=== PATIENT | male | born 1975 ===

== ENCOUNTER → 2021-02-24 15:38 | Outpatient (CLI) | payer BC, SELFPAY ==
--- NOTE | ~2021-02-24 | MR_ITS ---
EXAMINATION: MR knee LT wo con DATE: 02/24/2021 16:26 INDICATION: Internal derangement of the left knee presenting with 5-6 months of left knee pain TECHNIQUE: Magnetic resonance imaging (MRI) of the left knee was performed without intravenous contra st. Sequences included coronal PD-weighted FSE, coronal PD-weighted FS FSE, sagittal T2-weighted FSE , sagittal PD-weighted FS FSE and axial PD weighted fat saturated FSE. COMPARISON: None. FINDINGS: Medial compartment: Medial meniscus is normal. Articular cartilage is normal. Lateral compartment: Lateral meniscus is normal. Articular cartilage is normal. 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 Remaining cartilage in the pa tellofemoral compartment is normal. Ligaments and tendons: Anterior and posterior cruciate ligaments are normal. The medial collateral ligament and fibular kiel ateral ligament complex are normal. The extensor mechanism is normal. The visualized medial and later al hamstring tendons as well as the iliotibial band are normal. Fluid: Physiologic amount of fluid in the joint space. No loose osteochondral bodies identified. Osseous/other: Aside from the previous noted degenerative subchondral changes at the trochlear groove there is ranjith l marrow signal throughout. No fracture or pathologic marrow replacing process. IMPRESSION: 1. 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 Otherwise normal left knee MRI Reviewed, dictated and finalized at location A.
== END ==
PROVIDERS: Visit Provider Orthopaedic Surgery
DX: M94.262 Chondromalacia, left knee (principal); M23.92 Unspecified internal derangement of left knee
CPT/HCPCS: 73721

== ENCOUNTER → 2023-02-18 08:20 | Outpatient (CLI) | payer BC, SELFPAY ==
--- NOTE | ~2023-02-18 | MR_ITS ---
EXAMINATION: MR knee RT wo con DATE: 02/18/2023 09:11 INDICATION: bilateral primary osteoarthritis of knee, chronic anterior TECHNIQUE: Magnetic resonance imaging (MRI) of the right knee was performed without intravenous contr ast. Sequences included axial PD-weighted FS FSE, coronal PD-weighted FSE and PD-weighted FS FSE, sag ittal PD-weighted FSE, and sagittal T2-weighted FS FSE. COMPARISON: X-ray bilateral knees 02/08/2023, images only. FINDINGS: Medial compartment: Apical blunting. Mild medial extrusion. Mild cartilage thinning. Mild osteophytosis. Lateral compartment: Intact meniscus. Mild diffuse cartilage thinning. Mild osteophytosis. Patellofemoral compartment: Cartilage and retinacula intact. Mild osteophytosis. Ligaments and tendons: The ACL, PCL, MCL, and LCL are intact. Remaining flexor and extensor tendons are intact. Fluid: Small knee joint effusion. Osseous/other: No suspicious focal or diffuse marrow signal. Minimal quadriceps enthesopathy. IMPRESSION: Mild tricompartmental osteoarthritic changes. Mild degenerative changes involving the medial meniscus. Minimal quadriceps enthesopathy. Reviewed, dictated and finalized at location K.
== END ==
PROVIDERS: PCP Family Medicine; Visit Provider Orthopaedic Surgery
DX: M17.0 Bilateral primary osteoarthritis of knee (principal)
CPT/HCPCS: 73721